=== PATIENT | male | born 1985 | race Caucasian/White ===

== ENCOUNTER 2018-12-01 16:09 | Emergency (ER) | payer OTHER ==
[~2018-12-01] VITALS: Ht 185.4 cm; Wt 99.8 kg
[~2018-12-01 16:09] MED LIST: AMOCLA875 PO; CEPH500 PO; CRUTCH USE; CYCL10 PO; HYDACE10B PO; HYDACE5 PO; IBUP600 PO; IBUP800 PO; NAPR500 PO; Naprosyn500 MG PO; OXYACE5T PO; OXYACE7.5T PO; Omeprazole20 M1 PO; PROACE100 PO; Percocet 5-3251 EACH PO; RXCEPH500 PO; RXCLIN PO; RXCYCL10 PO; RXOXYACE PO; RXPROACE PO; SULTRIDS PO; SULTRISS PO; TRIA80TC TOP; Ultram50 MG PO
== END 2018-12-01 19:51 | disposition short-term general hospital (02) ==
LOC: ER 16:09
DX: S01.112A Laceration without foreign body of left eyelid and periocular area, initial encounter (principal); S05.02XA Injury of conjunctiva and corneal abrasion without foreign body, left eye, initial encounter; K21.9 Gastro-esophageal reflux disease without esophagitis; Z79.899 Other long term (current) drug therapy; W26.8XXA Contact with other sharp object(s), not elsewhere classified, initial encounter; Y99.0 Civilian activity done for income or pay
CPT/HCPCS: 36415; 70480; 90471; 90714; 96365; 96375; 96376; 99285-25; J0690; J1170; J2405

== ENCOUNTER 2020-03-12 10:34 | Emergency (ER) | payer OTHER ==
[~2020-03-12] VITALS: Ht 185.4 cm; Wt 104.3 kg
== END 2020-03-12 12:17 | disposition home or self-care (01) ==
LOC: ER 10:34
DX: S51.811A Laceration without foreign body of right forearm, initial encounter (principal); K21.9 Gastro-esophageal reflux disease without esophagitis; Z79.899 Other long term (current) drug therapy; W23.0XXA Caught, crushed, jammed, or pinched between moving objects, initial encounter; Y92.814 Boat as the place of occurrence of the external cause; Y99.0 Civilian activity done for income or pay
CPT/HCPCS: 12002; 73090; 99282-25

== ENCOUNTER 2025-06-26 11:05 | Day surgery (SDC) | payer OTHER ==
[~2025-06-26] VITALS: Ht 182.9 cm; Wt 116.3 kg
[2025-06-26] VITALS (11 sets, daily range): BP systolic 133–151; BP diastolic 83–104
[~2025-06-26 11:05] MED LIST changes: +ALBU90OI INH; +Bupivacaine 0.5% W/EPI 1:200000 SDV 30 ML Vial ONE; +CeFAZolin Sodium 2,000 MG in NS 100 ML IV SCH
--- NOTE | 2025-06-26 11:48 | NUR ---
PT CAME TO PREOP WITH 2CM X 2CM ABRASION ON L LOWER ABD, SMALL RED BUMPS NOTED. AFTER SHAVING FOR PROCEDURE, AREA INSIDE STRIAE DISTENSAE BECAME RED WITH SMALL PINPOINT SIZE RED GOINS BELOW NAVEL.
[2025-06-26] MEDS ORDERED: FentaNYL Citrate 50 MCG/ML 2 ML Injection ONE (13:07)
[2025-06-26] MEDS ORDERED: Rocuronium Bromide 10 MG/ML 5ML Injection IV ONE ×2 (13:15→14:08)
[2025-06-26] MEDS ORDERED: Dexamethasone Sod Phos 10 MG/ML 1ML VIAL ONE (13:31)
[2025-06-26] MEDS ORDERED: Ondansetron HCl 2 MG / ML 2ML Vial ONE (13:31)
[2025-06-26] MEDS ORDERED: HYDROmorphone HCl/Pf 1MG SYR ONE (13:41)
[2025-06-26] MEDS ORDERED: HYDROmorphone HCl/Pf 1MG SYR IV PRN ×2 (14:00→14:05)
[2025-06-26] MEDS ORDERED: Albuterol 2.5 MG/3 ML VIAL INH PRN (14:05)
[2025-06-26] MEDS ORDERED: Metoclopramide HCl 5MG / ML 2ML Vial IV PRN (14:05)
[2025-06-26] MEDS ORDERED: FentaNYL Citrate 50 MCG/ML 2 ML Injection IV PRN (14:05)
[2025-06-26] MEDS ORDERED: Ketorolac Tromethamine 30mg Vial IV PRN (14:10)
[2025-06-26] MEDS ORDERED: OxyCODONE 5 mg/Acetamin 325 mg TABLET PO PRN (15:35)
--- NOTE | 2025-06-26 15:52 | NUR ---
INTO STEP-PT DROWSY, BUT AWAKENS TO VOICE. DENIES PAIN. VS WDL. PORT SITE X 4 WITH DERMABOND-C/D/I.PT OFFERERD PO FLUIDS-PT REQUESTS "TO REST FOR A WHILE."
--- NOTE | 2025-06-26 16:19 | NUR ---
PT WIDE AWAKE AND TOLERATING PO FOOD AND FLUIDS. PT REPORTS 7/10 ABDOMINAL PAIN-MED WITH PERCOCET 1 PO, AND TORADOL 30 MG IVP X 1-SEE EMAR.
--- NOTE | 2025-06-26 17:04 | NUR ---
REVIEWED DISCHARGE INSTRUCTIONS. PT VERBALIZES UNDERSTANDING. DISCHARGED TO HOME-OUT VIA WHEELCHAIR WITH RX, DISCHARGE INSTRUCTIONS, AND BELONGINGS ON HAND.
== END 2025-06-26 17:04 | disposition home or self-care (01) ==
LOC: ORSCMMR 11:05 → ORD 12:30 → ORSCMMR 17:04
PROVIDERS: Surgery
PROC: 8E0W4CZ Robotic Assisted Procedure of Trunk Region, Percutaneous Endoscopic Approach (ICD-10-PCS; principal; 2025-06-26 12:30)
PROC: 0YUA4JZ Supplement Bilateral Inguinal Region with Synthetic Substitute, Percutaneous Endoscopic Approach (ICD-10-PCS; principal; 2025-06-26 12:30)
PROC: 3E0T3BZ Introduction of Anesthetic Agent into Peripheral Nerves and Plexi, Percutaneous Approach (ICD-10-PCS; principal; 2025-06-26 12:30)
DX: K40.00 Bilateral inguinal hernia, with obstruction, without gangrene, not specified as recurrent (principal); N50.812 Left testicular pain; K66.0 Peritoneal adhesions (postprocedural) (postinfection); J45.909 Unspecified asthma, uncomplicated; E66.9 Obesity, unspecified; Z68.34 Body mass index [BMI] 34.0-34.9, adult; F41.9 Anxiety disorder, unspecified; Z79.899 Other long term (current) drug therapy
CPT/HCPCS: A9270; C1781; J0690; J1100; J1171; J1885; J2405; J2704; J3010; J7120